=== PATIENT | male | born 1960 | race Caucasian/White ===

== ENCOUNTER 2023-10-22 10:02 | Emergency (ER) | payer OTHER ==
[2023-10-22 10:44] VITALS: BP 150/70; PULSE 74; RESP 20; TEMP 98.2; BMI 22.7
[2023-10-22] MEDS ORDERED: ACETAMINOPHEN 325 MG TABLET (FP) ONE (10:52)
[2023-10-22] MEDS: ACETAMINOPHEN 325 MG TABLET (FP) PO ONE (10:57)
== END 2023-10-22 11:07 | disposition home or self-care (01) ==
LOC: FER 10:02
DX: S86.112A Strain of other muscle(s) and tendon(s) of posterior muscle group at lower leg level, left leg, initial encounter (principal); X50.9XXA Other and unspecified overexertion or strenuous movements or postures, initial encounter; Y93.01 Activity, walking, marching and hiking
CPT/HCPCS: 99283-25